=== PATIENT | female | born 1950 | race Caucasian/White ===

== ENCOUNTER 2020-03-06 07:58 | Day surgery (SDC) | payer MEDICARE, OTHER ==
[2020-02-29 12:24] LABS: CLARITY,URINE CLOUDY (Clear); COLOR,URINE YELLOW (Yellow); GLUCOSE, URINE NEGATIVE (Neg); KETONES,URINE NEGATIVE (Neg); LEUKOCYTE ESTERASE ,URINE NEGATIVE (Neg); NITRITES, URINE NEGATIVE (Neg); OCCULT BLOOD,URINE NEGATIVE (Neg); PROTEIN,URINE NEGATIVE (Neg); UROBILINOGEN,URINE 0.2 E.U/dL (0.2-1.0)
[2020-02-29 12:24] LABS: BASOPHILS % (AUTO) 0.6 % (0-1); EOSINOPHILS # (AUTO) 0.1 X10'3 (0-0.9); LYMPHOCYTES # (AUTO) 1.3 X10'3 (1.1-4.8); LYMPHOCYTES % (AUTO) 23.2 % (21-51); MEAN CORPUSCULAR HEMOGLOBIN 31.2 PG (27.0-31.0); MEAN CORPUSCULAR HGB CONC 33.4 g/dL (33.0-36.5); MEAN CORPUSCULAR VOLUME 93.3 FL (78-98); MEAN PLATELET VOLUME 7.6 FL (7.4-10.4); MONOCYTES # (AUTO) 0.6 X10'3 (0-0.9); MONOCYTES % (AUTO) 11.4 % (2-12); NEUTROPHILS # (AUTO) 3.5 X10'3 (1.8-7.7); NEUTROPHILS % (AUTO) 63.8 % (42-75); PRE OP HEMATOCRIT 38.7 % (35.0-45.0); PRE OP HEMOGLOBIN 12.9 g/dL (12.0-16.0); PRE OP PLATELET COUNT 287 X10'3 (140-440); RED BLOOD COUNT 4.15 X10'6 (4.20-5.60); RED CELL DISTRIBUTION WIDTH 14.1 % (11.5-14.5)
[2020-02-29 12:25] LABS: UA COLLECTION TYPE CLN CATCH MIDSTREAM
[2020-02-29 12:39] LABS: ALBUMIN 3.5 G/DL (3.4-5.0); ALKALINE PHOSPHATASE 78 IU/L (46-116); BLOOD UREA NITROGEN 20 MG/DL (7-18); BUN/CREATININE RATIO 25.6 (6.6-38.0); CALCIUM 9.1 MG/DL (8.5-10.1); CHLORIDE 106 MMOL/L (99-107); CREATININE 0.78 MG/DL (0.40-0.90); PRE OP ALT 33 U/L (30-65); PRE OP ANION GAP 5 (8-16); PRE OP AST 21 U/L (10-37); PRE OP BILIRUB, TOTAL 0.3 MG/DL (0.0-1.0); PRE OP GLUCOSE 113 MG/DL (70-104); PRE OP POTASSIUM 4.1 MMOL/L (3.4-5.1); PRE OP SODIUM 139 MMOL/L (135-145); TOTAL CARBON DIOXIDE 27.8 MMOL/L (24-32); eGFR 73 ML/MIN
[2020-02-29 12:39] LABS: BACTERIA,URINE 2+ /HPF (Neg); MUCUS STRANDS MODERATE /LPF (Neg); SQUAMOUS EPITHELIAL CELL,UR MANY /LPF (FEW); YEAST FEW /HPF (NEGATIVE)
[2020-02-29 12:40] LABS: RBC,URINE 0-2 /HPF (0-2); WBC,URINE 0-4 /HPF (0-4)
[2020-03-06] VITALS (7 sets, daily range): BP systolic 103–160; BP diastolic 69–96
[~2020-03-06] VITALS: Ht 167.6 cm; Wt 85.0 kg
[~2020-03-06 07:58] MED LIST: ERGO400C PO; LEVO150T61 PO; MAGN400C PO; OMEP20TA23 PO; UBID30CA11 PO; cefazolin/dext.iso 2gm/100ml 100 ML IV ONE; famotidine 20mg tablet PO ONE; ringers solution, lacted 1,000 ML IV SCH
[2020-03-06] MEDS ORDERED: ceFAZolin 1000mg inj ONE (11:47)
[2020-03-06] MEDS ORDERED: BUPIVAcaine/PF 2.5 mg/ml (0.25%) 30ml vial ONE (11:47)
[2020-03-06] MEDS ORDERED: midazolam 2 mg/2 ml injection ONE (12:12)
[2020-03-06] MEDS ORDERED: sevoflurane 250ml liquid IH ONE (12:12)
[2020-03-06] MEDS ORDERED: fentaNYL /PF 50mcg/ml 5ml ampule ONE (12:12)
[2020-03-06] MEDS ORDERED: labetalol 20mg/4ml (5mg/ml) syringe IV ONE (12:12)
[2020-03-06] MEDS ORDERED: acetaminophen 1000 MG/100ml vial IV ONE (12:12)
[2020-03-06] MEDS ORDERED: BUPIVACAINE liposomal/PF 13.3 MG/ML vial IM ONE (12:42)
[2020-03-06] MEDS ORDERED: BUPIVAcaine/PF 2.5mg/ml (0.25%) 10ml vial ONE (12:42)
--- NOTE | 2020-03-06 13:45 | NUR ---
Received from OR via [facility] , accompanied by Anesthesiologist KENNY and report given by Anesthesiolgist. PATIENT WITH 20G PIV IN RIGHT UE RUNNING LR AT 100. DENIES PAIN AT THIS TIME. 3 ABDOMINAL BANDAIDS PRESENT AND ARE CDI.PATIENT VSS AT THIS TIME. Addendum: 03/06/20 at 1400 by Александр Steven RN, RN Amended: Links added.
[2020-03-06] MEDS ORDERED: ringers solution, lacted 1,000 ML IV SCH (14:26)
[2020-03-06] MEDS ORDERED: morphine 4 MG/ML inj SYRINge IV PRN (14:30)
[2020-03-06] MEDS ORDERED: meperidine/PF 25mg/ml syringe IV PRN ×3 (14:30)
[2020-03-06] MEDS ORDERED: morphine 2 MG/ML inj. syringe IV PRN (14:30)
[2020-03-06] MEDS ORDERED: proCHLORperazine 10 MG/2 ml inj IV PRN (14:30)
[2020-03-06] MEDS ORDERED: ondansetron/PF 4mg/2ml inj IV PRN (14:30)
--- NOTE | 2020-03-06 15:05 | NUR ---
All dc criteria for discharge home has been met. IV taken out without complications. All questions answered regarding dc paperwork. Vss. Significant other present to take patient home. Dressings cdi and vital signs stable. Taken out via wheelchair to personal vehicle where patient taken home by family/friend. Addendum: 03/06/20 at 1505 by Александр Steven RN, RN Amended: Links added.
[2020-03-06] MEDS ORDERED: glycopyrrolate 0.2mg/ml inj ONE (16:00)
[2020-03-06] MEDS ORDERED: LIDOcaine 2% (20mg/ml) 5ml vial ONE (16:00)
[2020-03-06] MEDS ORDERED: rocuronium 10mg/ml inj IV ONE (16:00)
[2020-03-06] MEDS ORDERED: neostigmine methylsulfate 1 MG/ML 10ml vial ONE (16:00)
[2020-03-06] MEDS ORDERED: ePHEDrine 50MG/ML INJ. ONE (16:00)
[2020-03-06] MEDS ORDERED: dexamethasone sod phosphate 4mg/ml inj. ONE (16:00)
[2020-03-06] MEDS ORDERED: propofol inj 20 ML IV ONE (16:00)
[2020-03-06] MEDS ORDERED: ondansetron/PF 4mg/2ml inj ONE (16:00)
== END 2020-03-06 14:45 | disposition home or self-care (01) ==
LOC: PAS 07:58
PROVIDERS: ATTEND Surgery
DX: K42.0 Umbilical hernia with obstruction, without gangrene (principal); K43.9 Ventral hernia without obstruction or gangrene; E78.00 Pure hypercholesterolemia, unspecified; E03.9 Hypothyroidism, unspecified; K21.9 Gastro-esophageal reflux disease without esophagitis; I10 Essential (primary) hypertension; M19.90 Unspecified osteoarthritis, unspecified site; Z98.890 Other specified postprocedural states; Z72.89 Other problems related to lifestyle; Z79.899 Other long term (current) drug therapy; Z82.49 Family history of ischemic heart disease and other diseases of the circulatory system; Z11.59 Encounter for screening for other viral diseases
CPT/HCPCS: 36415; 49652; 64488; 80053; 81001; 82948; 85025; 87635; 93005; C1758; C1781; C9290; J0131; J0690; J1100; J2001; J2250; J2405; J2704; J2710; J3010; J3490; J7120; A4215; A4618; A7000